=== PATIENT | female | born 1945 | race Caucasian/White ===

== ENCOUNTER 2024-03-05 15:28 | Emergency (ER) | payer MEDICAID, OTHER ==
[~2024-03-05] VITALS: Ht 162.6 cm; Wt 74.8 kg
[~2024-03-05 15:28] MED LIST: ALPR0.5T GT
[2024-03-05 16:19] LABS: BASOPHILS % (AUTO) 0.3 % (0.0-2.0); EOSINOPHILS # (AUTO) 0.2 K/uL (0.0-0.7); HEMATOCRIT 29 % (33-45); HEMOGLOBIN 9.1 g/dL (11.5-14.8); LYMPHOCYTES # (AUTO) 0.6 K/uL (0.8-4.8); MEAN CORPUSCULAR HEMOGLOBIN 27 PG (26.0-33.0); MEAN CORPUSCULAR HGB CONC 32 g/dl (31.0-36.0); MEAN CORPUSCULAR VOLUME 84 fL (82-100); MONOCYTES # (AUTO) 0.4 K/uL (0.1-1.30); MONOCYTES % (AUTO) 5.4 % (2.0-12.0); NEUTROPHILS # (AUTO) 6.4 K/uL (1.8-8.9); NEUTROPHILS % (AUTO) 83.3 % (43.0-81.0); PLATELET COUNT (AUTO) 286 K/uL (150-450); RED BLOOD CELL COUNT(AUTO) 3.41 MIL/uL (4.0-5.2); RED CELL DISTRIBUTION WIDTH 16.6 % (11.5-15.0); WHITE BLOOD COUNT (AUTO) 7.7 K/uL (4.3-11.0)
[2024-03-05 16:41] LABS: PROTHROMBIN TIME 10.6 SECS (9.2-11.1)
[2024-03-05 16:51] LABS: ALANINE AMINOTRANSFERASE 14 U/L (12-78); ALBUMIN 2.1 g/dL (3.4-5.0); ASPARTATE AMINOTRANSFERASE 7 U/L (15-37); BILIRUBIN,DIRECT 0.2 mg/dL (0.0-0.2); BILIRUBIN,TOTAL 0.5 mg/dL (0.2-1.0); CALCIUM, SERUM 9.1 mg/dL (8.5-10.1); CARBON DIOXIDE 33 mmol/L (21-32); CHLORIDE 101 mmol/L (98-107); CREATININE 0.4 mg/dL (0.6-1.3); GLUCOSE 103 mg/dL (74-106); POTASSIUM 3.4 mmol/L (3.5-5.1); SODIUM SERUM 141 mmol/L (136-145); TOTAL PROTEIN, SERUM 5.9 g/dL (6.4-8.2); UREA NITROGEN, BLOOD 11 mg/dL (7-18)
[2024-03-05 17:06] LABS: ALKALINE PHOSPHATASE 87 U/L (46-116)
[2024-03-05] MEDS ORDERED: AMLO-212 GT (17:21)
[2024-03-05] MEDS ORDERED: SENN-261 GT (17:21)
[2024-03-05] MEDS ORDERED: ACET-73 GT (17:21)
[2024-03-05] MEDS ORDERED: IPRA3AMP23 IH ×2 (17:21)
[2024-03-05] MEDS ORDERED: NUT.250L18 GT (17:21)
[2024-03-05] MEDS ORDERED: CLON1PAT TD (17:21)
[2024-03-05] MEDS ORDERED: AMIN30LI66 GT (17:21)
[2024-03-05] MEDS ORDERED: FLUT1BLS15 IH (17:21)
[2024-03-05] MEDS ORDERED: TRAM50TA2 GT (17:21)
[2024-03-05] MEDS ORDERED: LEVO112T7 GT (17:21)
[2024-03-05] MEDS ORDERED: LANSOPRAZOLE GT (17:21)
[2024-03-05] MEDS ORDERED: CLOP75TA15 GT (17:21)
[2024-03-05] MEDS ORDERED: ACET325T53 GT (17:21)
[2024-03-05] MEDS ORDERED: AZEL137S7 BNOSTRILS (17:21)
[2024-03-05] MEDS ORDERED: POLY250017 GT (17:21)
[2024-03-05] MEDS ORDERED: CHLO473M5 PO (17:21)
[2024-03-05] MEDS ORDERED: MELA3TAB41 GT (17:21)
[2024-03-05] MEDS ORDERED: INSU100I47 SQ (17:21)
[2024-03-05] MEDS ORDERED: ATOR40TA GT (17:21)
[2024-03-05] MEDS ORDERED: MONT10TA22 GT (17:21)
[2024-03-06 21:54] VITALS: BP 113/71; TEMP 98.5; O2SAT 100
== END 2024-03-06 21:54 | disposition short-term general hospital (02) ==
LOC: ER 15:28
DX: K94.23 Gastrostomy malfunction (principal); Z99.11 Dependence on respirator [ventilator] status; Z20.822 Contact with and (suspected) exposure to COVID-19; Y84.8 Other medical procedures as the cause of abnormal reaction of the patient, or of later complication, without mention of misadventure at the time of the procedure; Y82.8 Other medical devices associated with adverse incidents
CPT/HCPCS: 31720; 36415; 80048-TC; 80076-TC; 85025-TC; 85730-TC; 86850-TC; 94002-TC; 94799-TC